=== PATIENT | female | born 1950 | race Caucasian/White ===

== ENCOUNTER 2018-04-24 07:03 | Day surgery (SDC) | payer MEDICARE, OTHER, BC ==
[2018-04-24] MEDS ORDERED: Lactated Ringers 1,000 ML IV SCH (07:30)
[2018-04-24] MEDS ORDERED: fentaNYL 100 MCG/2 ML SDV ONE (08:03)
[2018-04-24] MEDS ORDERED: Propofol 200 MG/20 ML SDV ONE (08:03)
[2018-04-24] MEDS ORDERED: Midazolam 1 MG/ML 2 ML SDV ONE (08:03)
--- NOTE | 2018-04-24 12:12 | OR ---
DATE OF PROCEDURE: 04/24/2018 PREOPERATIVE DIAGNOSIS: Strong family history of colon cancer--sister had colon cancer. POSTOPERATIVE DIAGNOSES: 1. Diverticulosis. 2. Strong family history of colon cancer--sister had colon cancer. PROCEDURE: Colonoscopy to the cecum. ANESTHESIA: IV anesthesia with monitored anesthesia care. SURGEON: Alphonso Don MD INDICATION: This 68-year-old white female is here for a colonoscopy. She has a strong family history of colon cancer in that her sister had colon cancer. She says that her last colonoscopic exam was done about ten years ago. I counseled her for the procedure including risks and alternatives, and she gave her informed consent to proceed. DESCRIPTION OF PROCEDURE: The patient was placed in the left lateral decubitus position. IV anesthesia was administered by the Anesthesia Service. Time-out was held. A rectal exam was performed, which was unremarkable. The flexible video Olympus colonoscope was introduced through her anus, up her rectum, and out her colon all the way to the cecum. Once the cecum was reached, the scope was slowly withdrawn, examining the mucosa throughout. No neoplastic lesions were seen. We saw multiple left-sided diverticula. There was no bleeding or inflammation associated with them. The scope was retroflexed in the rectum with the distal rectum appearing unremarkable. The scope was straightened and removed. She tolerated the procedure well. Recommend repeat colonoscopy in five years because of her family history. Alphonso Don MD /[id number]
== END 2018-04-24 09:34 | disposition home or self-care (01) ==
LOC: JP.SDS 07:03
PROVIDERS: ATTEND Surgery
DX: Z12.11 Encounter for screening for malignant neoplasm of colon (principal); K57.30 Diverticulosis of large intestine without perforation or abscess without bleeding; R73.03 Prediabetes; Z80.0 Family history of malignant neoplasm of digestive organs
CPT/HCPCS: G0105; J2250; J2704; J3010; J7120